=== PATIENT | male | born 1965 | race Caucasian/White ===

== ENCOUNTER 2024-04-18 09:13 | Inpatient (IN) | payer MEDICAID, OTHER ==
[~2024-04-18] VITALS: Ht 182.9 cm; Wt 78.9 kg
[~2024-04-18 09:13] MED LIST: DIVA500T2 PO; FLUO40CA8 PO; OLAN10TA3 PO
[2024-04-18] MEDS: IV NS 0.9% 1,000 ML BAG IV ONE (09:42)
[2024-04-18 10:12] LABS: CALCIUM, SERUM 7.9 mg/dL (8.5-10.1); CARBON DIOXIDE 28 mmol/L (21-32); CHLORIDE 111 mmol/L (98-107); GLUCOSE 97 mg/dL (74-106); POTASSIUM 3.6 mmol/L (3.5-5.1); SODIUM SERUM 141 mmol/L (136-145); UREA NITROGEN, BLOOD 20 mg/dL (7-18)
[2024-04-18 10:13] LABS: BASOPHILS % (AUTO) 0.6 % (0.0-2.0); EOSINOPHILS % (AUTO) 2.7 % (0.0-6.0); HEMATOCRIT 25 % (39-51); HEMOGLOBIN 8.1 g/dL (13.5-17.5); LYMPHOCYTES # (AUTO) 0.4 K/uL (0.8-4.8); LYMPHOCYTES % (AUTO) 26.4 % (20.0-44.0); MEAN CORPUSCULAR HEMOGLOBIN 25 PG (26.0-33.0); MEAN CORPUSCULAR HGB CONC 32 g/dl (31.0-36.0); MEAN CORPUSCULAR VOLUME 79 fL (80-96); MONOCYTES # (AUTO) 0.2 K/uL (0.1-1.30); MONOCYTES % (AUTO) 12.9 % (2.0-12.0); NEUTROPHILS # (AUTO) 0.9 K/uL (1.8-8.9); NEUTROPHILS % (AUTO) 57.4 % (43.0-81.0); RED CELL DISTRIBUTION WIDTH 22.2 % (11.5-15.0)
[2024-04-18 10:18] LABS: ALANINE AMINOTRANSFERASE 89 U/L (12-78); ALBUMIN 2.3 g/dL (3.4-5.0); ALCOHOL, BLOOD < 3 mg/dL (0-10); ALKALINE PHOSPHATASE 169 U/L (46-116); ASPARTATE AMINOTRANSFERASE 116 U/L (15-37); BILIRUBIN,DIRECT 0.9 mg/dL (0.0-0.2); BILIRUBIN,TOTAL 2.1 mg/dL (0.2-1.0); TOTAL PROTEIN, SERUM 6.4 g/dL (6.4-8.2)
[2024-04-18 10:19] LABS: ACETAMINOPHEN <10 ug/ml (10-30); SALICYLATE < 2.3 mg/dL (2.8-20.0)
[2024-04-18 10:36] LABS: PLATELET COUNT (AUTO) 36 K/uL (150-450); WHITE BLOOD COUNT (AUTO) 1.5 K/uL (4.3-11.0)
[2024-04-18 10:39] LABS: AMPHETAMINE, URINE POSITIVE (NEGATIVE); BARBITURATE, URINE NEGATIVE (NEGATIVE); BENZODIAZEPINE, URINE NEGATIVE (NEGATIVE); COCCAINE, URINE NEGATIVE (NEGATIVE); OPIATE, URINE NEGATIVE (NEGATIVE); PHENCYCLIDINE SCREEN,URINE NEGATIVE (NEGATIVE)
[2024-04-18 10:40] LABS: APPEARANCE,URINE CLEAR (CLEAR); BILIRUBIN,URINE NEGATIVE (NEGATIVE); BLOOD, URINE TRACE-INTA Ery/uL (NEGATIVE); COLOR,URINE DARK YELLOW (YELLOW); KETONES,URINE NEGATIVE (NEGATIVE); LEUKOCYTE ESTERASE ,URINE NEGATIVE (NEGATIVE); NITRITE, URINE NEGATIVE (NEGATIVE); PROTEIN,URINE NEGATIVE (NEGATIVE); UGLUCOSE NEGATIVE (NEGATIVE)
[2024-04-18 10:41] LABS: CANNABINOID, URINE POSITIVE (NEGATIVE)
[2024-04-18 10:57] LABS: ADD URINE CULTURE NO; BACTERIA,URINE Rare /HPF (None Seen); SQUAMOUS EPITHELIAL CELL,UR None Seen /HPF (None Seen)
[2024-04-18 11:30] LABS: INR 1.41 (0.91-1.10); PROTHROMBIN TIME 14.6 SECS (9.2-11.1)
[2024-04-18] MEDS: CEFTRIAXONE 1GM BAG (ER ONLY) 1 GM/50 ML PIGGYBACK IV ONE (11:31)
[2024-04-18 12:06] LABS: ANISOCYTOSIS 2+; BASOPHILS % (MANUAL) 0 % (0.0-2.0); EOSINOPHILS % (MANUAL) 0 % (0-4); LYMPHOCYTES % (MANUAL) 23 % (16-48); MONOCYTES % (MANUAL) 13 % (0-11.0); NEUTROPHILS % (MANUAL) 64 (42-76); PLATELET ESTIMATE DECREASED
[2024-04-18] MEDS: IV NS 0.9% 500 ML BAG IV ONE (12:10)
[2024-04-18] MEDS ORDERED: ONDANSETRON HCL/PF 4 MG/2 ML VIAL IVP PRN (12:30)
[2024-04-18] MEDS ORDERED: MAGNESIUM HYDROXIDE 30 ML UDC PO PRN (12:30)
[2024-04-18] MEDS ORDERED: ZOLPIDEM TARTRATE 5 MG TABLET PO PRN (12:30)
[2024-04-18] MEDS ORDERED: Z GUARD REMEDY 4 OZ OINT TP PRN (12:30)
[2024-04-18] MEDS: LACTULOSE 10 G/15 ML UDC (PYXIS) PO SCH (15:25)
[2024-04-18] MEDS: AZITHROMYCIN 500 MG in IV D5W 250 ML IV SCH (15:25)
[2024-04-18 16:30] VITALS: BP 100/66; TEMP 98.1; O2SAT 98
[2024-04-18 16:45] LABS: BASOPHILS % (AUTO) 0.9 % (0.0-2.0); EOSINOPHILS % (AUTO) 2.4 % (0.0-6.0); HEMATOCRIT 25 % (39-51); HEMOGLOBIN 7.7 g/dL (13.5-17.5); LYMPHOCYTES # (AUTO) 0.2 K/uL (0.8-4.8); LYMPHOCYTES % (AUTO) 20.1 % (20.0-44.0); MEAN CORPUSCULAR HEMOGLOBIN 25 PG (26.0-33.0); MEAN CORPUSCULAR HGB CONC 31 g/dl (31.0-36.0); MEAN CORPUSCULAR VOLUME 80 fL (80-96); MONOCYTES # (AUTO) 0.1 K/uL (0.1-1.30); NEUTROPHILS # (AUTO) 0.8 K/uL (1.8-8.9); NEUTROPHILS % (AUTO) 66.6 % (43.0-81.0); RED CELL DISTRIBUTION WIDTH 22.2 % (11.5-15.0)
[2024-04-18 16:55] LABS: PLATELET COUNT (AUTO) 32 K/uL (150-450); WHITE BLOOD COUNT (AUTO) 1.2 K/uL (4.3-11.0)
[2024-04-18] MEDS: IV NS 0.9% 1,000 ML IV PRN (18:31)
[2024-04-18 19:16] LABS: LYMPHOCYTES % (MANUAL) 28 % (16-48); MONOCYTES % (MANUAL) 12 % (0-11.0); NEUTROPHILS % (MANUAL) 60 (42-76); PLATELET ESTIMATE DECREASED
[2024-04-18 19:18] LABS: ANISOCYTOSIS 1+; HYPOCHROMASIA 1+
[2024-04-18 20:00] VITALS: BP 146/78; TEMP 98; O2SAT 99
[2024-04-19] VITALS (13 sets, daily range): BP systolic 98–148; BP diastolic 51–73; TEMP 97.7–98.6; O2SAT 97–100
[2024-04-19 07:20] LABS: BASOPHILS % (AUTO) 0.8 % (0.0-2.0); EOSINOPHILS % (AUTO) 1.1 % (0.0-6.0); HEMATOCRIT 22 % (39-51); LYMPHOCYTES # (AUTO) 0.3 K/uL (0.8-4.8); LYMPHOCYTES % (AUTO) 23.7 % (20.0-44.0); MEAN CORPUSCULAR HEMOGLOBIN 25 PG (26.0-33.0); MEAN CORPUSCULAR HGB CONC 32 g/dl (31.0-36.0); MEAN CORPUSCULAR VOLUME 79 fL (80-96); MONOCYTES # (AUTO) 0.1 K/uL (0.1-1.30); MONOCYTES % (AUTO) 12.4 % (2.0-12.0); NEUTROPHILS # (AUTO) 0.7 K/uL (1.8-8.9); RED BLOOD CELL COUNT(AUTO) 2.73 MIL/uL (4.5-6.0); RED CELL DISTRIBUTION WIDTH 22.3 % (11.5-15.0)
[2024-04-19 07:37] LABS: HEMOGLOBIN 6.9 g/dL (13.5-17.5); PLATELET COUNT (AUTO) 31 K/uL (150-450); WHITE BLOOD COUNT (AUTO) 1.2 K/uL (4.3-11.0)
[2024-04-19 07:44] LABS: ALBUMIN 1.8 g/dL (3.4-5.0); BILIRUBIN,TOTAL 1.3 mg/dL (0.2-1.0); CREATININE 0.9 mg/dL (0.6-1.3); MAGNESIUM 1.7 mg/dL (1.8-2.4); PHOSPHORUS 2.9 mg/dL (2.5-4.9); POTASSIUM 3.4 mmol/L (3.5-5.1); TOTAL PROTEIN, SERUM 5.4 g/dL (6.4-8.2)
[2024-04-19 07:48] LABS: ANISOCYTOSIS 1+; BASOPHILS % (MANUAL) 0 % (0.0-2.0); EOSINOPHILS % (MANUAL) 2 % (0-4); HYPOCHROMASIA 1+; LYMPHOCYTES % (MANUAL) 25 % (16-48); MONOCYTES % (MANUAL) 17 % (0-11.0); NEUTROPHILS % (MANUAL) 56 (42-76); OVALOCYTES 1+; PLATELET ESTIMATE DECREASED
[2024-04-19] MEDS: PANTOPRAZOLE 40 MG VIAL IV SCH (09:01)
[2024-04-19] MEDS: MAGNESIUM OXIDE 400 MG TABLET PO ONE (09:23)
[2024-04-19] MEDS: POTASSIUM CHLORIDE 20 MEQ POWDER PACKET PO SCH (09:45)
[2024-04-19] MEDS: ACETAMINOPHEN 325 MG TABLET PO PRN (09:46)
[2024-04-19] MEDS: CEFTRIAXONE 1 G in IV D5W 50 ML IV SCH (10:34)
[2024-04-19] MEDS: CITALOPRAM HYDROBROMIDE 20 MG TABLET PO SCH (11:07)
[2024-04-19] MEDS ORDERED: TBO-FILGRASTIM 480 MCG/0.8 ML ML SQ SCH (13:00)
[2024-04-19] MEDS: TRAMADOL HCL 50 MG TABLET PO PRN (13:20)
[2024-04-19] MEDS: TBO-FILGRASTIM 480 MCG/0.8 ML ML SQ SCH (14:22)
[2024-04-19 14:56] LABS: HIV-1 p24 ANTIGEN NON REACTIVE (NONREACTIVE); HIV-1/2 ANTIBODY NON REACTIVE (NONREACTIVE)
[2024-04-19 15:33] LABS: D-DIMER 3.73 mg/L(FEU (0.17-0.50); INR 1.48 (0.91-1.10); PARTIAL THROMBOPLASTIN TIME 28.5 SEC (24.3-34.3); PROTHROMBIN TIME 15.3 SECS (9.2-11.1)
[2024-04-19 15:46] LABS: THYROID STIMULATING HORMONE 6.27 uIU/mL (0.358-3.74)
[2024-04-19 15:53] LABS: RHEUMATOID FACTOR SCREEN POSITIVE (NEGATIVE)
[2024-04-19] MEDS: OLANZAPINE 10 MG TABLET PO SCH (21:41)
[2024-04-20 04:38] VITALS: BP 109/77; TEMP 97.7; O2SAT 99
[2024-04-20 08:00] VITALS: BP 110/62; TEMP 97.7; O2SAT 96
[2024-04-20 08:14] LABS: BASOPHILS % (AUTO) 0.4 % (0.0-2.0); EOSINOPHILS % (AUTO) 0.2 % (0.0-6.0); HEMATOCRIT 26 % (39-51); HEMOGLOBIN 8.3 g/dL (13.5-17.5); LYMPHOCYTES # (AUTO) 0.5 K/uL (0.8-4.8); LYMPHOCYTES % (AUTO) 6.5 % (20.0-44.0); MEAN CORPUSCULAR HEMOGLOBIN 26 PG (26.0-33.0); MEAN CORPUSCULAR HGB CONC 32 g/dl (31.0-36.0); MEAN CORPUSCULAR VOLUME 80 fL (80-96); MONOCYTES # (AUTO) 0.2 K/uL (0.1-1.30); MONOCYTES % (AUTO) 3.2 % (2.0-12.0); NEUTROPHILS # (AUTO) 6.5 K/uL (1.8-8.9); NEUTROPHILS % (AUTO) 89.7 % (43.0-81.0); RED CELL DISTRIBUTION WIDTH 21.4 % (11.5-15.0); WHITE BLOOD COUNT (AUTO) 7.3 K/uL (4.3-11.0)
[2024-04-20 08:27] LABS: PLATELET COUNT (AUTO) 24 K/uL (150-450)
[2024-04-20 08:34] LABS: ALBUMIN 1.9 g/dL (3.4-5.0); BILIRUBIN,TOTAL 1.7 mg/dL (0.2-1.0); CALCIUM, SERUM 7.3 mg/dL (8.5-10.1); CREATININE 0.8 mg/dL (0.6-1.3); POTASSIUM 3.6 mmol/L (3.5-5.1); TOTAL PROTEIN, SERUM 5.8 g/dL (6.4-8.2)
[2024-04-20 08:47] LABS: OCCULT BLOOD STOOL POSITIVE (NEGATIVE)
[2024-04-20 09:56] LABS: ANISOCYTOSIS 1+; BASOPHILS % (MANUAL) 0 % (0.0-2.0); EOSINOPHILS % (MANUAL) 0 % (0-4); HYPOCHROMASIA 1+; LYMPHOCYTES % (MANUAL) 7 % (16-48); MONOCYTES % (MANUAL) 4 % (0-11.0); NEUTROPHILS % (MANUAL) 89 (42-76); PLATELET ESTIMATE DECREASED
[2024-04-20 16:00] VITALS: BP 109/70; TEMP 97.7; O2SAT 96
[2024-04-20] MEDS: LACTULOSE 10 G/15 ML UDC (PYXIS) PO SCH (16:04)
[2024-04-20] MEDS: FERROUS SULFATE (325 MG) 325 MG/TAB TABLET PO SCH (16:04)
[2024-04-20 17:06] LABS: D-DIMER 4.1 mg/L(FEU (0.17-0.50); INR 1.41 (0.91-1.10); PARTIAL THROMBOPLASTIN TIME 28.8 SEC (24.3-34.3); PROTHROMBIN TIME 14.6 SECS (9.2-11.1)
[2024-04-20 20:48] VITALS: BP 106/62; TEMP 98.8; O2SAT 96
[2024-04-20 23:16] VITALS: BP 115/78; TEMP 97.8
[2024-04-20 23:30] VITALS: BP 115/65; TEMP 97.7
[2024-04-21] VITALS (13 sets, daily range): BP systolic 100–147; BP diastolic 70–90; TEMP 97.4–99; O2SAT 96–100
[2024-04-21 06:48] LABS: INR 1.33 (0.91-1.10); PARTIAL THROMBOPLASTIN TIME 28.9 SEC (24.3-34.3); PROTHROMBIN TIME 13.8 SECS (9.2-11.1)
[2024-04-21 07:04] LABS: ALBUMIN 2.1 g/dL (3.4-5.0); CALCIUM, SERUM 7.5 mg/dL (8.5-10.1); CREATININE 0.9 mg/dL (0.6-1.3); POTASSIUM 3.5 mmol/L (3.5-5.1); TOTAL PROTEIN, SERUM 5.9 g/dL (6.4-8.2)
[2024-04-21 07:20] LABS: D-DIMER 5.12 mg/L(FEU (0.17-0.50)
[2024-04-21 07:22] LABS: BASOPHILS % (AUTO) 0.2 % (0.0-2.0); EOSINOPHILS % (AUTO) 0.9 % (0.0-6.0); HEMATOCRIT 26 % (39-51); HEMOGLOBIN 8.3 g/dL (13.5-17.5); LYMPHOCYTES # (AUTO) 0.3 K/uL (0.8-4.8); LYMPHOCYTES % (AUTO) 11.1 % (20.0-44.0); MEAN CORPUSCULAR HEMOGLOBIN 26 PG (26.0-33.0); MEAN CORPUSCULAR HGB CONC 32 g/dl (31.0-36.0); MEAN CORPUSCULAR VOLUME 81 fL (80-96); MONOCYTES # (AUTO) 0.1 K/uL (0.1-1.30); MONOCYTES % (AUTO) 4.9 % (2.0-12.0); NEUTROPHILS # (AUTO) 2.1 K/uL (1.8-8.9); NEUTROPHILS % (AUTO) 82.9 % (43.0-81.0); RED BLOOD CELL COUNT(AUTO) 3.24 MIL/uL (4.5-6.0); RED CELL DISTRIBUTION WIDTH 21.8 % (11.5-15.0); WHITE BLOOD COUNT (AUTO) 2.5 K/uL (4.3-11.0)
[2024-04-21 08:25] LABS: PLATELET COUNT (AUTO) 26 K/uL (150-450)
[2024-04-21] MEDS ORDERED: IV NS 0.9% 250 ML IV ONE (09:12)
[2024-04-21] MEDS ORDERED: IOHEXOL-300 100 ML VIAL IV ONE (09:12)
[2024-04-21] MEDS: LACTULOSE 10 G/15 ML UDC (PYXIS) PO SCH (10:00)
[2024-04-21 11:54] LABS: EOSINOPHILS % (MANUAL) 1 % (0-4); LYMPHOCYTES % (MANUAL) 20 % (16-48); MONOCYTES % (MANUAL) 1 % (0-11.0); NEUTROPHILS % (MANUAL) 78 (42-76)
[2024-04-21 11:56] LABS: ANISOCYTOSIS 1+; HYPOCHROMASIA 1+; PLATELET ESTIMATE DECREASED
[2024-04-21 11:57] LABS: OVALOCYTES 1+
[2024-04-21] MEDS: AZITHROMYCIN 250 MG TABLET PO SCH (15:25)
[2024-04-21] MEDS: diphenhydrAMINE HCL 50 MG/ML VIAL IV ONE (18:25)
[2024-04-21] MEDS: ACETAMINOPHEN 325 MG TABLET PO ONE (18:25)
[2024-04-22 03:07] LABS: IMMUNOGLOBULIN A, SERUM 381 mg/dL (90-386); IMMUNOGLOBULIN G, SERUM 2146 mg/dL (603-1613)
[2024-04-22 04:00] VITALS: BP 115/80; TEMP 98; O2SAT 98
[2024-04-22 05:11] LABS: HEPATITIS B SURFACE AB Reactive (.)
[2024-04-22 07:40] LABS: ALBUMIN 2.2 g/dL (3.4-5.0); BILIRUBIN,TOTAL 0.9 mg/dL (0.2-1.0); CALCIUM, SERUM 7.9 mg/dL (8.5-10.1); CREATININE 0.9 mg/dL (0.6-1.3); POTASSIUM 3.4 mmol/L (3.5-5.1); TOTAL PROTEIN, SERUM 6.3 g/dL (6.4-8.2)
[2024-04-22 07:44] LABS: INR 1.33 (0.91-1.10); PARTIAL THROMBOPLASTIN TIME 29.4 SEC (24.3-34.3); PROTHROMBIN TIME 13.8 SECS (9.2-11.1)
[2024-04-22 08:00] VITALS: BP 109/70; TEMP 97.7; O2SAT 96
[2024-04-22 08:08] LABS: D-DIMER 6.35 mg/L(FEU (0.17-0.50)
[2024-04-22 08:14] LABS: BASOPHILS % (AUTO) 0.5 % (0.0-2.0); EOSINOPHILS % (AUTO) 0.8 % (0.0-6.0); HEMATOCRIT 27 % (39-51); HEMOGLOBIN 8.4 g/dL (13.5-17.5); LYMPHOCYTES # (AUTO) 0.2 K/uL (0.8-4.8); LYMPHOCYTES % (AUTO) 15.2 % (20.0-44.0); MEAN CORPUSCULAR HEMOGLOBIN 26 PG (26.0-33.0); MEAN CORPUSCULAR HGB CONC 32 g/dl (31.0-36.0); MEAN CORPUSCULAR VOLUME 81 fL (80-96); MONOCYTES # (AUTO) 0.1 K/uL (0.1-1.30); MONOCYTES % (AUTO) 7.2 % (2.0-12.0); NEUTROPHILS # (AUTO) 1.2 K/uL (1.8-8.9); NEUTROPHILS % (AUTO) 76.3 % (43.0-81.0); RED BLOOD CELL COUNT(AUTO) 3.26 MIL/uL (4.5-6.0); RED CELL DISTRIBUTION WIDTH 22.6 % (11.5-15.0)
[2024-04-22 08:34] LABS: PLATELET COUNT (AUTO) 26 K/uL (150-450); WHITE BLOOD COUNT (AUTO) 1.6 K/uL (4.3-11.0)
[2024-04-22] MEDS: SPIRONOLACTONE 25 MG TABLET PO SCH (08:40)
[2024-04-22] MEDS: PANTOPRAZOLE 40 MG TABLET.DR PO SCH (08:42)
[2024-04-22 10:07] LABS: *SPE A/G RATIO 0.7 (0.7-1.7); *SPE ALBUMIN 2.3 g/dL (2.9-4.4); *SPE ALPHA-1-GLOBULIN 0.2 g/dL (0.0-0.4); *SPE ALPHA-2-GLOBULIN 0.3 g/dL (0.4-1.0); *SPE BETA GLOBULIN 0.7 g/dL (0.7-1.3); *SPE GLOBULIN, TOTAL 3.5 g/dL (2.2-3.9); *SPE M-SPIKE Not Observed g/dL (Not Observed); *SPE PROTEIN TOTAL 5.8 g/dL (6.0-8.5); *SPEGAMMA GLOBULIN 2.2 g/dL (0.4-1.8)
[2024-04-22] MEDS: POTASSIUM CHLORIDE 20 MEQ TAB.PRT.SR PO SCH (10:24)
[2024-04-22 13:09] LABS: *ANA ANTI-CENTROMERE B AB <0.2 AI (0.0-0.9); *ANA ANTI-DNA(DS) AB, QN 25 IU/mL (0-9); *ANA ANTI-JO-1 <0.2 AI (0.0-0.9); *ANA ANTICHROMATIN ANTIBODY 0.2 AI (0.0-0.9); *ANA RNP ANTIBODIES 0.4 AI (0.0-0.9); *ANA SJOGREN'S ANTI-SS-A 0.2 AI (0.0-0.9); *ANA SJOGREN'S ANTI-SS-B <0.2 AI (0.0-0.9); *ANAANTI-SCLERODERMA-70 AB <0.2 AI (0.0-0.9); *ANASMITH AB 1.9 AI (0.0-0.9)
[2024-04-22 13:10] LABS: ANISOCYTOSIS 1+; HYPOCHROMASIA 1+; LYMPHOCYTES % (MANUAL) 13 % (16-48); MONOCYTES % (MANUAL) 5 % (0-11.0); NEUTROPHILS % (MANUAL) 82 (42-76); PLATELET ESTIMATE DECREASED
[2024-04-22 16:11] VITALS: BP 116/79; TEMP 98; O2SAT 100
[2024-04-22 17:08] LABS: FOLIC ACID 16.8 ng/mL (>3.0); IMMUNOGLOBULIN M, SERUM 210 mg/dL (20-172)
[2024-04-22] MEDS: diphenhydrAMINE HCL 50 MG/ML VIAL IV ONE (18:07)
[2024-04-22 20:00] VITALS: BP 91/68; TEMP 97.8; O2SAT 96
[2024-04-23 04:00] VITALS: BP 119/84; TEMP 97.9; O2SAT 99
[2024-04-23 07:11] LABS: CALCIUM, SERUM 7.7 mg/dL (8.5-10.1); CREATININE 0.9 mg/dL (0.6-1.3); POTASSIUM 3.5 mmol/L (3.5-5.1)
[2024-04-23 07:15] LABS: INR 1.37 (0.91-1.10); PARTIAL THROMBOPLASTIN TIME 29.5 SEC (24.3-34.3); PROTHROMBIN TIME 14.2 SECS (9.2-11.1)
[2024-04-23 07:17] LABS: D-DIMER 7.12 mg/L(FEU (0.17-0.50)
[2024-04-23 08:00] VITALS: BP 99/60; TEMP 98; O2SAT 99
[2024-04-23 13:39] LABS: EOSINOPHILS % (AUTO) 1.3 % (0.0-6.0); HEMATOCRIT 29 % (39-51); HEMOGLOBIN 9.1 g/dL (13.5-17.5); LYMPHOCYTES # (AUTO) 0.5 K/uL (0.8-4.8); LYMPHOCYTES % (AUTO) 35.4 % (20.0-44.0); MEAN CORPUSCULAR HEMOGLOBIN 26 PG (26.0-33.0); MEAN CORPUSCULAR HGB CONC 32 g/dl (31.0-36.0); MEAN CORPUSCULAR VOLUME 81 fL (80-96); MONOCYTES # (AUTO) 0.2 K/uL (0.1-1.30); MONOCYTES % (AUTO) 11.8 % (2.0-12.0); NEUTROPHILS # (AUTO) 0.7 K/uL (1.8-8.9); NEUTROPHILS % (AUTO) 51.5 % (43.0-81.0); RED CELL DISTRIBUTION WIDTH 23.6 % (11.5-15.0)
[2024-04-23 13:41] LABS: PLATELET COUNT (AUTO) 26 K/uL (150-450); WHITE BLOOD COUNT (AUTO) 1.4 K/uL (4.3-11.0)
[2024-04-23 14:20] LABS: ANISOCYTOSIS 2+; BASOPHILS % (MANUAL) 0 % (0.0-2.0); EOSINOPHILS % (MANUAL) 1 % (0-4); LYMPHOCYTES % (MANUAL) 32 % (16-48); MONOCYTES % (MANUAL) 8 % (0-11.0); NEUTROPHILS % (MANUAL) 59 (42-76); PLATELET ESTIMATE DECREASED
[2024-04-23] MEDS: TBO-FILGRASTIM 480 MCG/0.8 ML ML SQ SCH (14:47)
[2024-04-23 16:00] VITALS: BP 102/64; TEMP 98.3; O2SAT 97
[2024-04-23 18:13] LABS: PROTEIN, BODY FLUID 0.5 G/DL
[2024-04-23 18:27] LABS: APPEARANCE,SPUN,BODY FLUID CLEAR (CLEAR); TOTAL VOLUME,BODY FLUID 3450 mL
[2024-04-23 20:00] VITALS: BP 106/56; TEMP 97.6; O2SAT 96
[2024-04-23 21:41] LABS: WBC, BODY FLUID 148 /cu. mm. (0-200)
[2024-04-23 22:08] LABS: MACROPHAGES, BODY FLUID 20; MONOCYTES,BODY FLUID 18 %; POLYNUCLEAR, BODY FLUID 38 % (0-25)
[2024-04-24 01:07] LABS: AFP, TUMOR MARKER 6.5 ng/mL (0.0-8.4)
[2024-04-24 04:00] VITALS: BP 102/52; TEMP 97.7; O2SAT 94
[2024-04-24 08:00] VITALS: BP 100/65; TEMP 98.1; O2SAT 99
[2024-04-24 09:03] LABS: CALCIUM, SERUM 7.9 mg/dL (8.5-10.1); CREATININE 0.9 mg/dL (0.6-1.3); POTASSIUM 3.6 mmol/L (3.5-5.1)
[2024-04-24 09:30] LABS: BASOPHILS % (AUTO) 0.3 % (0.0-2.0); EOSINOPHILS % (AUTO) 0.2 % (0.0-6.0); HEMATOCRIT 28 % (39-51); HEMOGLOBIN 8.8 g/dL (13.5-17.5); LYMPHOCYTES # (AUTO) 0.4 K/uL (0.8-4.8); LYMPHOCYTES % (AUTO) 7.9 % (20.0-44.0); MEAN CORPUSCULAR HEMOGLOBIN 26 PG (26.0-33.0); MEAN CORPUSCULAR HGB CONC 32 g/dl (31.0-36.0); MEAN CORPUSCULAR VOLUME 81 fL (80-96); MONOCYTES # (AUTO) 0.2 K/uL (0.1-1.30); MONOCYTES % (AUTO) 4.8 % (2.0-12.0); NEUTROPHILS # (AUTO) 4.4 K/uL (1.8-8.9); NEUTROPHILS % (AUTO) 86.8 % (43.0-81.0); RED CELL DISTRIBUTION WIDTH 23.8 % (11.5-15.0); WHITE BLOOD COUNT (AUTO) 5.1 K/uL (4.3-11.0)
[2024-04-24 09:31] LABS: PLATELET COUNT (AUTO) 27 K/uL (150-450)
[2024-04-24 13:50] LABS: LYMPHOCYTES % (MANUAL) 6 % (16-48); MONOCYTES % (MANUAL) 5 % (0-11.0)
[2024-04-24 13:53] LABS: ANISOCYTOSIS 2+; BAND % (MANUAL) 4 % (0.0-5.0); NEUTROPHILS % (MANUAL) 85 (42-76); PLATELET ESTIMATE DECREASED
[2024-04-24] MEDS: MAG HYDROX/AL HYDROX/SIMETH 30 ML UDC PO PRN (14:46)
[2024-04-24 16:00] VITALS: BP 105/66; TEMP 97.7; O2SAT 99
[2024-04-24] MEDS: MORPHINE SULFATE INJ 2 MG/ML DISP.SYRIN IV PRN (18:53)
[2024-04-24 20:00] VITALS: BP 91/58; TEMP 97.9; O2SAT 96
[2024-04-25 04:04] VITALS: BP 91/58; TEMP 97.9; O2SAT 96
[2024-04-25 08:00] VITALS: BP 98/60; TEMP 98; O2SAT 96
[2024-04-25] MEDS: CITALOPRAM HYDROBROMIDE 20 MG TABLET PO SCH (09:10)
[2024-04-25 16:00] VITALS: BP 95/63; TEMP 98; O2SAT 96
[2024-04-25 17:20] LABS: BASOPHILS % (AUTO) 0.6 % (0.0-2.0); HEMATOCRIT 30 % (39-51); HEMOGLOBIN 9.6 g/dL (13.5-17.5); LYMPHOCYTES # (AUTO) 0.5 K/uL (0.8-4.8); LYMPHOCYTES % (AUTO) 21.2 % (20.0-44.0); MEAN CORPUSCULAR HEMOGLOBIN 26 PG (26.0-33.0); MEAN CORPUSCULAR HGB CONC 32 g/dl (31.0-36.0); MEAN CORPUSCULAR VOLUME 82 fL (80-96); MONOCYTES # (AUTO) 0.2 K/uL (0.1-1.30); MONOCYTES % (AUTO) 9.4 % (2.0-12.0); NEUTROPHILS # (AUTO) 1.7 K/uL (1.8-8.9); NEUTROPHILS % (AUTO) 67.8 % (43.0-81.0); RED BLOOD CELL COUNT(AUTO) 3.65 MIL/uL (4.5-6.0); RED CELL DISTRIBUTION WIDTH 24.5 % (11.5-15.0); WHITE BLOOD COUNT (AUTO) 2.5 K/uL (4.3-11.0)
[2024-04-25 17:28] LABS: PLATELET COUNT (AUTO) 20 K/uL (150-450)
[2024-04-25 18:05] LABS: LYMPHOCYTES % (MANUAL) 21 % (16-48); NEUTROPHILS % (MANUAL) 69 (42-76); REACTIVE LYMPHOCYTES 10 % (0-0)
[2024-04-25 18:06] LABS: ANISOCYTOSIS 1+; PLATELET ESTIMATE DECREASED
[2024-04-25 20:00] VITALS: BP 107/65; TEMP 97.7
[2024-04-26] VITALS (9 sets, daily range): BP systolic 91–119; BP diastolic 61–76; TEMP 97.4–98.2; O2SAT 96–99
[2024-04-26 08:46] LABS: BASOPHILS % (AUTO) 0.7 % (0.0-2.0); EOSINOPHILS % (AUTO) 1.3 % (0.0-6.0); HEMATOCRIT 29 % (39-51); HEMOGLOBIN 8.9 g/dL (13.5-17.5); LYMPHOCYTES # (AUTO) 0.3 K/uL (0.8-4.8); LYMPHOCYTES % (AUTO) 22.6 % (20.0-44.0); MEAN CORPUSCULAR HEMOGLOBIN 26 PG (26.0-33.0); MEAN CORPUSCULAR HGB CONC 31 g/dl (31.0-36.0); MEAN CORPUSCULAR VOLUME 82 fL (80-96); MONOCYTES # (AUTO) 0.2 K/uL (0.1-1.30); NEUTROPHILS # (AUTO) 0.9 K/uL (1.8-8.9); NEUTROPHILS % (AUTO) 64.4 % (43.0-81.0); RED BLOOD CELL COUNT(AUTO) 3.47 MIL/uL (4.5-6.0); RED CELL DISTRIBUTION WIDTH 24.6 % (11.5-15.0)
[2024-04-26 09:08] LABS: D-DIMER 6.69 mg/L(FEU (0.17-0.50); INR 1.42 (0.91-1.10); PARTIAL THROMBOPLASTIN TIME 30.2 SEC (24.3-34.3); PROTHROMBIN TIME 14.7 SECS (9.2-11.1)
[2024-04-26 09:15] LABS: PLATELET COUNT (AUTO) 29 K/uL (150-450); WHITE BLOOD COUNT (AUTO) 1.5 K/uL (4.3-11.0)
[2024-04-26] MEDS: TBO-FILGRASTIM 480 MCG/0.8 ML ML SQ SCH (14:23)
[2024-04-26 17:31] LABS: ANISOCYTOSIS 1+; EOSINOPHILS % (MANUAL) 2 % (0-4); HYPOCHROMASIA 1+; LYMPHOCYTES % (MANUAL) 12 % (16-48); MONOCYTES % (MANUAL) 2 % (0-11.0); NEUTROPHILS % (MANUAL) 84 (42-76); PLATELET ESTIMATE DECREASED
[2024-04-26] MEDS: diphenhydrAMINE HCL 50 MG/ML VIAL IV ONE (17:32)
[2024-04-27 08:00] VITALS: BP 95/61; TEMP 97.5; O2SAT 98
[2024-04-27 08:14] LABS: INR 1.35 (0.91-1.10); PARTIAL THROMBOPLASTIN TIME 30.1 SEC (24.3-34.3)
[2024-04-27 08:21] LABS: D-DIMER 6.32 mg/L(FEU (0.17-0.50)
[2024-04-27 08:29] LABS: BASOPHILS % (AUTO) 0.9 % (0.0-2.0); EOSINOPHILS % (AUTO) 0.7 % (0.0-6.0); HEMATOCRIT 29 % (39-51); HEMOGLOBIN 9.5 g/dL (13.5-17.5); LYMPHOCYTES # (AUTO) 0.4 K/uL (0.8-4.8); MEAN CORPUSCULAR HEMOGLOBIN 27 PG (26.0-33.0); MEAN CORPUSCULAR HGB CONC 33 g/dl (31.0-36.0); MEAN CORPUSCULAR VOLUME 82 fL (80-96); MONOCYTES # (AUTO) 0.3 K/uL (0.1-1.30); MONOCYTES % (AUTO) 7.5 % (2.0-12.0); NEUTROPHILS # (AUTO) 3.8 K/uL (1.8-8.9); NEUTROPHILS % (AUTO) 81.9 % (43.0-81.0); RED BLOOD CELL COUNT(AUTO) 3.57 MIL/uL (4.5-6.0); WHITE BLOOD COUNT (AUTO) 4.6 K/uL (4.3-11.0)
[2024-04-27 08:34] LABS: PLATELET COUNT (AUTO) 25 K/uL (150-450)
[2024-04-27 10:44] LABS: LYMPHOCYTES % (MANUAL) 14 % (16-48); MONOCYTES % (MANUAL) 2 % (0-11.0); NEUTROPHILS % (MANUAL) 84 (42-76)
[2024-04-27 10:45] LABS: ANISOCYTOSIS 1+; PLATELET ESTIMATE DECREASED
[2024-04-27] MEDS: MORPHINE SULFATE INJ 2 MG/ML DISP.SYRIN IV PRN (14:19)
[2024-04-27 16:00] VITALS: BP 117/73; TEMP 97.7; O2SAT 99
[2024-04-27 20:00] VITALS: BP 112/73; TEMP 97.9; O2SAT 97
[2024-04-28 04:00] VITALS: BP 110/68; TEMP 97.8
[2024-04-28 07:40] LABS: EOSINOPHILS % (AUTO) 1.5 % (0.0-6.0); HEMATOCRIT 26 % (39-51); HEMOGLOBIN 8.3 g/dL (13.5-17.5); LYMPHOCYTES # (AUTO) 0.4 K/uL (0.8-4.8); LYMPHOCYTES % (AUTO) 21.8 % (20.0-44.0); MEAN CORPUSCULAR HEMOGLOBIN 26 PG (26.0-33.0); MEAN CORPUSCULAR HGB CONC 32 g/dl (31.0-36.0); MEAN CORPUSCULAR VOLUME 82 fL (80-96); MONOCYTES # (AUTO) 0.2 K/uL (0.1-1.30); MONOCYTES % (AUTO) 9.4 % (2.0-12.0); NEUTROPHILS # (AUTO) 1.4 K/uL (1.8-8.9); NEUTROPHILS % (AUTO) 66.3 % (43.0-81.0); RED BLOOD CELL COUNT(AUTO) 3.21 MIL/uL (4.5-6.0); RED CELL DISTRIBUTION WIDTH 24.4 % (11.5-15.0)
[2024-04-28 07:48] LABS: CALCIUM, SERUM 7.4 mg/dL (8.5-10.1); CREATININE 0.9 mg/dL (0.6-1.3); POTASSIUM 3.7 mmol/L (3.5-5.1)
[2024-04-28 07:50] LABS: PLATELET COUNT (AUTO) 28 K/uL (150-450)
[2024-04-28 08:00] VITALS: BP 93/61; TEMP 97.8; O2SAT 99
[2024-04-28 08:10] LABS: INR 1.37 (0.91-1.10); PARTIAL THROMBOPLASTIN TIME 29.3 SEC (24.3-34.3); PROTHROMBIN TIME 14.2 SECS (9.2-11.1)
[2024-04-28 08:12] LABS: D-DIMER 6.9 mg/L(FEU (0.17-0.50)
[2024-04-28 10:50] LABS: LYMPHOCYTES % (MANUAL) 20 % (16-48); MONOCYTES % (MANUAL) 9 % (0-11.0); NEUTROPHILS % (MANUAL) 71 (42-76); PLATELET ESTIMATE DECREASED
[2024-04-28 11:01] LABS: ANISOCYTOSIS 2+
[2024-04-28 16:00] VITALS: BP 93/61; TEMP 97.7; O2SAT 99
[2024-04-28 20:00] VITALS: BP 115/91; TEMP 97.9; O2SAT 97
[2024-04-29 04:00] VITALS: BP 118/78; TEMP 97.8; O2SAT 99
[2024-04-29 07:24] LABS: D-DIMER 7.64 mg/L(FEU (0.17-0.50); INR 1.38 (0.91-1.10); PARTIAL THROMBOPLASTIN TIME 29.5 SEC (24.3-34.3); PROTHROMBIN TIME 14.3 SECS (9.2-11.1)
[2024-04-29 07:26] LABS: EOSINOPHILS % (AUTO) 0.3 % (0.0-6.0); HEMATOCRIT 27 % (39-51); HEMOGLOBIN 8.8 g/dL (13.5-17.5); LYMPHOCYTES # (AUTO) 0.4 K/uL (0.8-4.8); MEAN CORPUSCULAR HEMOGLOBIN 27 PG (26.0-33.0); MEAN CORPUSCULAR HGB CONC 32 g/dl (31.0-36.0); MEAN CORPUSCULAR VOLUME 83 fL (80-96); MONOCYTES # (AUTO) 0.3 K/uL (0.1-1.30); MONOCYTES % (AUTO) 20.8 % (2.0-12.0); NEUTROPHILS # (AUTO) 0.7 K/uL (1.8-8.9); NEUTROPHILS % (AUTO) 48.9 % (43.0-81.0); RED BLOOD CELL COUNT(AUTO) 3.29 MIL/uL (4.5-6.0); RED CELL DISTRIBUTION WIDTH 24.6 % (11.5-15.0)
[2024-04-29 07:28] LABS: PLATELET COUNT (AUTO) 23 K/uL (150-450); WHITE BLOOD COUNT (AUTO) 1.4 K/uL (4.3-11.0)
[2024-04-29 07:36] LABS: CALCIUM, SERUM 7.8 mg/dL (8.5-10.1); CREATININE 0.9 mg/dL (0.6-1.3); POTASSIUM 3.6 mmol/L (3.5-5.1)
[2024-04-29 08:00] VITALS: BP 115/82; TEMP 98; O2SAT 99
[2024-04-29 12:52] LABS: PLATELET ESTIMATE DECREASED
[2024-04-29 12:56] LABS: EOSINOPHILS % (MANUAL) 1 % (0-4); LYMPHOCYTES % (MANUAL) 24 % (16-48); MONOCYTES % (MANUAL) 8 % (0-11.0); NEUTROPHILS % (MANUAL) 67 (42-76)
[2024-04-29 13:08] LABS: ANISOCYTOSIS 2+
[2024-04-29 13:09] LABS: TARGET CELLS 1+
[2024-04-29] MEDS: diphenhydrAMINE HCL ELIX 25 MG/10 ML UDC PO PRN (13:58)
[2024-04-29 16:00] VITALS: BP 109/89; TEMP 97.8; O2SAT 98
[2024-04-29] MEDS: TBO-FILGRASTIM 480 MCG/0.8 ML ML SQ SCH (16:31)
[2024-04-29 20:00] VITALS: BP 98/65; TEMP 98.2; O2SAT 98
[2024-04-30 04:00] VITALS: BP 96/47; TEMP 98.2; O2SAT 98
[2024-04-30 07:57] LABS: BASOPHILS % (AUTO) 0.3 % (0.0-2.0); EOSINOPHILS % (AUTO) 0.5 % (0.0-6.0); HEMATOCRIT 29 % (39-51); HEMOGLOBIN 9.3 g/dL (13.5-17.5); LYMPHOCYTES # (AUTO) 0.4 K/uL (0.8-4.8); LYMPHOCYTES % (AUTO) 8.9 % (20.0-44.0); MEAN CORPUSCULAR HEMOGLOBIN 26 PG (26.0-33.0); MEAN CORPUSCULAR HGB CONC 32 g/dl (31.0-36.0); MEAN CORPUSCULAR VOLUME 83 fL (80-96); MONOCYTES # (AUTO) 0.3 K/uL (0.1-1.30); NEUTROPHILS # (AUTO) 3.5 K/uL (1.8-8.9); NEUTROPHILS % (AUTO) 84.3 % (43.0-81.0); RED BLOOD CELL COUNT(AUTO) 3.54 MIL/uL (4.5-6.0); RED CELL DISTRIBUTION WIDTH 25.9 % (11.5-15.0); WHITE BLOOD COUNT (AUTO) 4.2 K/uL (4.3-11.0)
[2024-04-30 08:00] LABS: PLATELET COUNT (AUTO) 24 K/uL (150-450)
[2024-04-30 08:23] LABS: D-DIMER 6.82 mg/L(FEU (0.17-0.50); INR 1.4 (0.91-1.10); PARTIAL THROMBOPLASTIN TIME 30.4 SEC (24.3-34.3); PROTHROMBIN TIME 14.5 SECS (9.2-11.1)
[2024-04-30 08:26] LABS: CALCIUM, SERUM 7.9 mg/dL (8.5-10.1); CREATININE 0.9 mg/dL (0.6-1.3); POTASSIUM 4.1 mmol/L (3.5-5.1)
[2024-04-30 09:20] LABS: ANISOCYTOSIS 1+; BASOPHILS % (MANUAL) 0 % (0.0-2.0); EOSINOPHILS % (MANUAL) 0 % (0-4); HYPOCHROMASIA 1+; LYMPHOCYTES % (MANUAL) 11 % (16-48); MONOCYTES % (MANUAL) 7 % (0-11.0); NEUTROPHILS % (MANUAL) 82 (42-76); PLATELET ESTIMATE DECREASED
[2024-04-30 20:00] VITALS: BP 96/47; TEMP 98.2; O2SAT 98
[2024-05-01 04:00] VITALS: BP 120/62; TEMP 97.8; O2SAT 100
[2024-05-01 07:30] VITALS: BP_SYST 111; BP_SYST 96; BP_DIAS 47; BP_DIAS 71; TEMP 97.9; TEMP 98.4; O2SAT 100; O2SAT 96
[2024-05-01 07:40] LABS: CALCIUM, SERUM 7.9 mg/dL (8.5-10.1); CREATININE 0.9 mg/dL (0.6-1.3); POTASSIUM 3.8 mmol/L (3.5-5.1)
[2024-05-01 07:51] LABS: BASOPHILS % (AUTO) 0.4 % (0.0-2.0); EOSINOPHILS % (AUTO) 0.7 % (0.0-6.0); HEMATOCRIT 28 % (39-51); HEMOGLOBIN 9.3 g/dL (13.5-17.5); LYMPHOCYTES # (AUTO) 0.6 K/uL (0.8-4.8); LYMPHOCYTES % (AUTO) 8.9 % (20.0-44.0); MEAN CORPUSCULAR HEMOGLOBIN 28 PG (26.0-33.0); MEAN CORPUSCULAR HGB CONC 33 g/dl (31.0-36.0); MEAN CORPUSCULAR VOLUME 84 fL (80-96); MONOCYTES # (AUTO) 0.4 K/uL (0.1-1.30); MONOCYTES % (AUTO) 6.3 % (2.0-12.0); NEUTROPHILS # (AUTO) 5.3 K/uL (1.8-8.9); NEUTROPHILS % (AUTO) 83.7 % (43.0-81.0); RED BLOOD CELL COUNT(AUTO) 3.37 MIL/uL (4.5-6.0); RED CELL DISTRIBUTION WIDTH 25.3 % (11.5-15.0); WHITE BLOOD COUNT (AUTO) 6.3 K/uL (4.3-11.0)
[2024-05-01 07:57] LABS: INR 1.43 (0.91-1.10); PARTIAL THROMBOPLASTIN TIME 30.2 SEC (24.3-34.3); PROTHROMBIN TIME 14.8 SECS (9.2-11.1)
[2024-05-01 08:00] VITALS: BP 111/71; TEMP 97.9; O2SAT 96
[2024-05-01 08:11] LABS: D-DIMER 5.55 mg/L(FEU (0.17-0.50)
[2024-05-01 08:36] LABS: PLATELET COUNT (AUTO) 26 K/uL (150-450)
[2024-05-01 09:42] LABS: BAND % (MANUAL) 4 % (0.0-5.0); LYMPHOCYTES % (MANUAL) 8 % (16-48); MONOCYTES % (MANUAL) 2 % (0-11.0); NEUTROPHILS % (MANUAL) 86 (42-76); PLATELET ESTIMATE DECREASED
[2024-05-01 09:44] LABS: ANISOCYTOSIS 1+; HYPOCHROMASIA 1+
[2024-05-01] MEDS ORDERED: PANT40TA49 PO (14:18)
[2024-05-01] MEDS ORDERED: SPIR25TA6 PO (14:18)
[2024-05-01] MEDS ORDERED: Olanzapine PO (14:18)
[2024-05-01] MEDS ORDERED: CITA20TA16 PO (14:18)
[2024-05-01] MEDS ORDERED: FERR325T28 PO (14:18)
[2024-05-01] MEDS ORDERED: LACT10SO58 PO (14:18)
== END 2024-05-01 17:26 | disposition hospice, inpatient (51) ==
LOC: ER 09:15 → MEDSG1 14:15
PROVIDERS: ADMIT Nurse Practitioner Acute Care; ATTEND Nurse Practitioner Acute Care
PROC: 30233M1 Transfusion of Nonautologous Plasma Cryoprecipitate into Peripheral Vein, Percutaneous Approach (ICD-10-PCS; principal; 2024-04-19)
PROC: 30233N1 Transfusion of Nonautologous Red Blood Cells into Peripheral Vein, Percutaneous Approach (ICD-10-PCS; 2024-04-19)
PROC: 0W9G3ZZ Drainage of Peritoneal Cavity, Percutaneous Approach (ICD-10-PCS; 2024-04-23)
DX: K74.60 Unspecified cirrhosis of liver (principal); I81 Portal vein thrombosis; G92.8 Other toxic encephalopathy; J15.69 Pneumonia due to other Gram-negative bacteria; I85.11 Secondary esophageal varices with bleeding; D61.818 Other pancytopenia; D65 Disseminated intravascular coagulation [defibrination syndrome]; E44.0 Moderate protein-calorie malnutrition; I95.9 Hypotension, unspecified; K76.82 Hepatic encephalopathy; R18.8 Other ascites; E88.09 Other disorders of plasma-protein metabolism, not elsewhere classified; F17.210 Nicotine dependence, cigarettes, uncomplicated; F20.9 Schizophrenia, unspecified; Z59.00 Homelessness unspecified; Z71.6 Tobacco abuse counseling; R74.01 Elevation of levels of liver transaminase levels; R16.1 Splenomegaly, not elsewhere classified; F19.10 Other psychoactive substance abuse, uncomplicated; R53.1 Weakness; Z68.23 Body mass index [BMI] 23.0-23.9, adult; F29 Unspecified psychosis not due to a substance or known physiological condition; D72.821 Monocytosis (symptomatic); Z51.5 Encounter for palliative care; D50.9 Iron deficiency anemia, unspecified; D68.4 Acquired coagulation factor deficiency; F32.2 Major depressive disorder, single episode, severe without psychotic features; F41.9 Anxiety disorder, unspecified; R45.851 Suicidal ideations
CPT/HCPCS: 36415; 49083; 71045-TC; 71260-TC; 76705-TC; 80048-TC; 80053-TC; 80076-TC; 81001; 82105; 82140-TC; 82272-TC; 82378; 82607-TC; 82728-TC; 82784; 83010; 83540-TC; 83605-TC; 83615-TC; 83735-TC; 84100-TC; 84155; 84165; 84443-TC; 84484-TC; 85025-TC; 85045-TC; 85396; 85730-TC; 86225; 86235; 86301; 86334; 86431-TC; 86706; 86803; 86850-TC; 86880-TC; 87040-TC; 87340; 87806; 88108-TC; 88305-TC; 89051-TC; A4223; G0378; G0480; J0456; J0696; J1200; J1447; J2270; J2470; J7030; J7040; J7050; J7060; P9012; P9016; Q0163; Q9967